=== PATIENT | female | born 1985 | race Two or more races ===

== ENCOUNTER 2019-03-11 18:31 | Emergency (ER) | payer MEDICAID ==
[~2019-03-11] VITALS: Ht 157.5 cm; Wt 122.4 kg
--- NOTE | 2019-03-11 18:35 | NUR ---
PT NOT IN LOBBY WHEN CALLED FOR TRIAGE
--- NOTE | 2019-03-11 19:23 | NUR ---
PT C/O VAGINAL BLEEDING FOR 3 MONTHS SINCE HER LAST PERIOD. PT DENIES AND ABD PAIN, N/V/D. PT RECEIVED AN UNKNOWN SHOT ABOUT A WEEKS AGO FROM ANOTHER HOSPITAL TO HELP THE BLEEDING STOP. WAITING FOR ORDERS.
[2019-03-11 19:40] LABS: BASOPHILS # (AUTO) 0.05 x10^3/uL (0-0.1); BASOPHILS % (AUTO) 0 % (0-1); EOSINOPHILS # (AUTO) 0.17 x10^3/uL (0-0.4); EOSINOPHILS % (AUTO) 2 % (1-7); LYMPHOCYTES # (AUTO) 2.96 x10^3/uL (1-3.4); LYMPHOCYTES % (AUTO) 27 % (22-44); MD NO; MEAN CORPUSCULAR HEMOGLOBIN 24.9 pg (27.0-34.8); MEAN CORPUSCULAR HGB CONC 31.6 g/dL (32.4-35.8); MEAN CORPUSCULAR VOLUME 78.9 fL (80-100); MEAN PLATELET VOLUME 9.3 fL (7.4-10.4); MONOCYTES # (AUTO) 0.68 x10^3/uL (0.2-0.8); MONOCYTES % (AUTO) 6 % (2-9); NEUTROPHILS # (AUTO) 6.99 x10^3/uL (1.8-6.8); NEUTROPHILS % (AUTO) 65 % (42-75); PLATELET COUNT 355 x10^3/uL (130-400); RED CELL DISTRIBUTION WIDTH 16.7 % (9.6-15.2)
[2019-03-11 19:53] LABS: ALANINE AMINOTRANSFERASE 22 U/L (12-78); ALBUMIN 3.1 g/dL (3.4-5.0); ANION GAP 8 mmol/L (5-15); CALCIUM 8.3 mg/dL (8.5-10.1); CHLORIDE 111 mmol/L (98-107); CREATININE 0.77 mg/dL (0.55-1.02)
[2019-03-11 19:55] LABS: ALKALINE PHOSPHATASE 81 U/L (45-117); BILIRUBIN,TOTAL 0.1 mg/dL (0.2-1.0); TOTAL PROTEIN 6.6 g/dL (6.4-8.2)
[2019-03-11 20:04] LABS: MICROSCOPIC INDICATED
[2019-03-11 20:05] LABS: HCG UR SG 1.037 (1.003-1.030)
[2019-03-11 20:06] LABS: CULTURE INDICATED? YES
[2019-03-11 20:41] VITALS: BP 138/73
== END 2019-03-11 20:43 | disposition home or self-care (01) ==
LOC: ED 20:15
DX: N83.292 Other ovarian cyst, left side (principal); N39.0 Urinary tract infection, site not specified; N93.8 Other specified abnormal uterine and vaginal bleeding
CPT/HCPCS: 36415; 76830; 80053; 81001; 81025; 85025; 87086; 99284